=== PATIENT | male | born 1935 | race Caucasian/White ===

== ENCOUNTER 2017-08-30 06:11 | Day surgery (SDC) | payer MEDICARE ==
[~2017-08-30] VITALS: Ht 180.3 cm; Wt 81.8 kg
[2017-08-30] VITALS (8 sets, daily range): BP systolic 126–159; BP diastolic 76–102; PULSE 58–75; RESP 20; TEMP 97.5–97.6; O2SAT 94–97
[2017-08-30] MEDS ORDERED: ASPI81CH37 CHEW (06:47)
[2017-08-30] MEDS ORDERED: ZOCO5TAB PO (06:47)
[2017-08-30] MEDS ORDERED: OMEGCAP PO (06:47)
[2017-08-30] MEDS ORDERED: VITA100036 PO (06:47)
[2017-08-30] MEDS ORDERED: TERA5CAP3 PO (06:47)
[2017-08-30] MEDS ORDERED: FINA5TAB2 PO (06:47)
[2017-08-30] MEDS ORDERED: SODIUM CHLOR 0.9% 1000 ML INJ 1,000 ML IV SCH (07:00)
[2017-08-30 07:08] LABS: AUTOMATED NEUTROPHIL # 3.3 TH/MM3 (1.8-7.7); BASOPHIL % 0.7 % (0.0-2.0); EOSINOPHIL # 0.1 TH/MM3 (0-0.4); HEMATOCRIT 41.1 % (39.0-51.0); HEMO FLAGS DIFF FINAL; LYMPH % 18.5 % (9.0-44.0); LYMPHOCYTE # 0.9 TH/MM3 (1.0-4.8); MEAN CELL VOLUME 90.5 FL (80.0-100.0); MEAN CORPUSCULAR HEMOGLOBIN 31.4 PG (27.0-34.0); MEAN CORPUSCULAR HGB CONC 34.7 % (32.0-36.0); MONO % 11.8 % (0.0-8.0); PLATELET COUNT 117 TH/MM3 (150-450); RED BLOOD COUNT 4.54 MIL/MM3 (4.50-5.90); RED CELL DISTRIBUTION WIDTH 13.6 % (11.6-17.2)
[2017-08-30 07:22] LABS: APTT (PATIENT) 34.5 SEC (24.3-30.1); PROTHROMBIN TIME - PATIENT 11.2 SEC (9.8-11.6)
[2017-08-30] MEDS ORDERED: LIDOCAINE HCL 1% 20 ML VIAL ONE (07:43)
[2017-08-30] MEDS ORDERED: MIDAZOLAM HCL 5 MG/5 ML VIAL ONE (07:49)
--- NOTE | 2017-08-30 09:12 | PD.RAD ---
Post CT Procedure Prog Note Pre Procedure Diagnosis: (1) Lung mass Post Procedure Diagnosis: (1) Lung mass Procedure Date: Aug 30, 2017 Supervising Radiologist: Ramiro Gillis Anesthesia: Local, Conscious Sedation Plan of Activity Patient to Unit: ROPU Patient Condition: Good See PACS Report for procedural detail/treatment Biopsy Imaging Guidance: CT Biopsy Procedure: Lung Site: RLL Specimen: Core Biopsy Ramiro Gillis MD Aug 30, 2017 09:12
--- NOTE | 2017-08-30 09:23 | RADRPT ---
EXAM DATE/TIME: 08/30/2017 08:21 [facility] COMPARISON: No previous studies available for comparison. INDICATIONS : Right lung mass. SEDATION TIME: 40 minutes BIOPSY SITE: Right MEDICATION(S): 1.) 2 mg midazolam (Versed) IV 2.) 100 mcg fentanyl (Sublimaze) IV DEVICE(S): 1.) 18 gauge Temno core biopsy needle MEDICAL HISTORY : Hypertension. SURGICAL HISTORY : None. ENCOUNTER: Initial ACUITY: 1 day PAIN SCORE: 0/10 LOCATION: Right chest A total of three core specimen(s) were obtained and sent to the laboratory for pathologic evaluation. PROCEDURE: 1. CT guided lung biopsy. 2. Conscious sedation with continuous EKG and oximetry monitoring. 3. EKG and oximetry remained stable throughout the procedure. Prior to the procedure informed consent was obtained. Any appropriate prior imaging studies were rev iewed. Using automated exposure control and adjustment of the mA and/or kV according to patient size, radiation dose was kept as low as reasonably achievable to obtain optimal diagnostic quality images. DICOM format image data is available electronically for review and comparison. The site was prepped in a sterile fashion. Full sterile technique was used, including cap, mask, yumiko rile gloves and gown and a large sterile sheet. Hand hygiene and 2% chlorhexidine and/or betadine/al cohol prep was utilized per protocol for cutaneous antisepsis. The skin and subcutaneous tissues wer e infiltrated with local anesthetic solution. With CT guidance the previously identified target was localized. Biopsy was performed using the presc ribed needle as above. Adequate hemostasis was obtained with compression at the puncture site. Follow-up CT scan reveals no pneumothorax. Conscious sedation was performed with the prescribed dosages and duration as above in the presence of an independent trained radiology nurse to assist in the monitoring of the patient. EKG and oximetry remained stable throughout the procedure. The patient tolerated the procedure well and there were no complications. The patient was sent to Radiology Outpatient Unit in stable condition. CONCLUSION: Uncomplicated CT guided biopsy. Ramiro Gillis MD on August 30, 2017 at 9:21 Board Certified Radiologist. This report was verified electronically.
--- NOTE | 2017-08-30 10:00 | RADRPT ---
EXAM DATE/TIME: 08/30/2017 09:45 [facility] COMPARISON: No previous studies available for comparison. INDICATIONS : Post right lung biopsy. MEDICAL HISTORY : Hypertension. SURGICAL HISTORY : None. ENCOUNTER: Subsequent ACUITY: 1 day PAIN SCORE: 0/10 LOCATION: Right chest FINDINGS: Single portable expiration view the chest shows hypoinflation with mild bibasilar atelectasis. No pne umothorax following lung biopsy. No effusions. Heart is normal in size. Bony structures are unremarka ble. CONCLUSION: No pneumothorax following biopsy. Warren Turpin Jr., MD on August 30, 2017 at 9:57 Board Certified Radiologist. This report was verified electronically.
--- NOTE | 2017-08-30 11:45 | RADRPT ---
EXAM DATE/TIME: 08/30/2017 11:23 [facility] COMPARISON: CHEST EXPIRATION ONLY, August 30, 2017, 9:45. INDICATIONS : Post right lung biopsy. MEDICAL HISTORY : Hypertension. SURGICAL HISTORY : None. ENCOUNTER: Initial ACUITY: 1 day PAIN SCORE: 0/10 LOCATION: Right chest FINDINGS: A single frontal expiratory view of the chest was performed. Right lung remains well-expanded follow ing biopsy. There is persistent airspace disease in the left base. Heart is not surgically stable. CONCLUSION: 1. No evidence of pneumothorax status post right lung biopsy. 2. Persistent left basilar airspace disease. Ramiro Gillis MD on August 30, 2017 at 11:39 Board Certified Radiologist. This report was verified electronically.
== END 2017-08-30 13:06 | disposition home or self-care (01) ==
LOC: HRAD 06:11 → HRIP 06:19 → HRAD 13:06
PROVIDERS: ATTEND Family Medicine
DX: R91.1 Solitary pulmonary nodule (principal); I10 Essential (primary) hypertension; I48.91 Unspecified atrial fibrillation
CPT/HCPCS: 32405; 71010; 77012; 85025; 85610; 85730; 88305; J2250; J3010; J7030

== ENCOUNTER 2017-11-06 13:20 | Emergency (ER) | payer MEDICARE ==
[~2017-11-06 13:20] MED LIST: ASPI81CH6 CHEW; CHOL10008 PO; FINA5TAB2 PO; OMEGCAP PO; TERA5CAP3 PO; ZOCO5TAB PO
[2017-11-06] MEDS ORDERED: ZOFR4TAB PO (13:56)
[2017-11-06] MEDS ORDERED: FAMO1TAB30 PO (13:56)
[2017-11-06] MEDS ORDERED: OXYC1TAB36 PO (13:56)
[2017-11-06] MEDS ORDERED: MEGE1SUS10 PO (13:56)
[2017-11-06] MEDS ORDERED: SODIUM CHLOR 0.9% 1000 ML INJ 1,000 ML IV SCH (14:00)
[2017-11-06] MEDS ORDERED: ONDANSETRON HCL 4 MG/2 ML VIAL IVP ONE (14:00)
[2017-11-06] MEDS ORDERED: MORPHINE SULFATE 4 MG/ML INJ IV PUSH ONE ×2 (14:00→17:00)
[2017-11-06] MEDS ORDERED: SODIUM CHLORIDE 0.9% FLUSH 10 ML FLUSH IV FLUSH PRN (14:00)
[2017-11-06 14:02] VITALS: O2SAT 97
[2017-11-06 14:33] LABS: AUTOMATED NEUTROPHIL # 1.4 TH/MM3 (1.8-7.7); BASOPHIL % 0.8 % (0.0-2.0); EOSINOPHIL % 0.8 % (0.0-4.0); HEMATOCRIT 29.5 % (39.0-51.0); HEMOGLOBIN 9.9 GM/DL (13.0-17.0); LYMPH % 12.9 % (9.0-44.0); LYMPHOCYTE # 0.2 TH/MM3 (1.0-4.8); MEAN CELL VOLUME 90.6 FL (80.0-100.0); MEAN CORPUSCULAR HEMOGLOBIN 30.3 PG (27.0-34.0); MEAN CORPUSCULAR HGB CONC 33.4 % (32.0-36.0); MEAN PLATELET VOLUME 6.7 FL (7.0-11.0); MONO % 8.8 % (0.0-8.0); MONOCYTE # 0.1 TH/MM3 (0-0.9); NEUT % 76.7 % (16.0-70.0); PLATELET COUNT 215 TH/MM3 (150-450); RED BLOOD COUNT 3.25 MIL/MM3 (4.50-5.90); RED CELL DISTRIBUTION WIDTH 13.1 % (11.6-17.2); WHITE BLOOD COUNT 1.7 TH/MM3 (4.0-11.0)
[2017-11-06 14:41] LABS: CHLORIDE 98 MEQ/L (98-107); SODIUM (NA) 132 MEQ/L (136-145)
[2017-11-06 14:45] LABS: ALBUMIN 2.5 GM/DL (3.4-5.0); BICARBONATE 22.5 MEQ/L (21.0-32.0); BLOOD UREA NITROGEN 17 MG/DL (7-18); GLUCOSE,RANDOM 97 MG/DL (74-106); INTERNATIONAL NORMALIZED RATIO 1.3 RATIO; LIPASE 71 U/L (73-393); PROTHROMBIN TIME - PATIENT 12.9 SEC (9.8-11.6)
[2017-11-06 14:48] LABS: ALT (GPT) 136 U/L (12-78); AST (GOT) 161 U/L (15-37); GLOMERULAR FILTRATION RATE 72 ML/MIN (>89)
[2017-11-06 14:50] LABS: TOTAL BILIRUBIN ADULT 1.2 MG/DL (0.2-1.0); TOTAL PROTEIN 6.6 GM/DL (6.4-8.2)
[2017-11-06 14:51] LABS: ALKALINE PHOSPHATASE 128 U/L (45-117)
[2017-11-06 14:54] LABS: OVALOCYTES 1+ (NORMAL)
[2017-11-06] MEDS ORDERED: SODIUM CHLORID 0.9% 500 ML INJ 500 ML IV ONE (16:15)
[2017-11-06] MEDS ORDERED: IOHEXOL 350 MG/ML 10 ML VIAL (for RAD DIAG) IVCONTRAST ONE (16:20)
[2017-11-06 16:57] VITALS: BP 140/79; PULSE 78; RESP 16; TEMP 99.5; O2SAT 99
--- NOTE | 2017-11-06 16:58 | PD ---
HPI Chief Complaint: GI Complaint Time Seen by Provider: 13:54 Travel History International Travel<30 days: No Contact w/Intl Traveler<30days: No Traveled to known affect area: No History of Present Illness HPI Patient is a 82 year old male who comes in complaining of diarrhea and abdominal pain. He has history of pancreatic cancer, last treated with chemo on 10/31. He says for the past few days he has had lower abdominal pain and he has been feeling weak. He started having diarrhea yesterday and has had several episodes, often being unable to get himself to the bathroom. He denies seeing any blood in his stool. He denies any recent antibiotic use. He says he has pain to his lower abdomen. He has not been eating much, but denies nausea or vomiting. He denies fever at home. Nothing seems to make his symptoms better. 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) Cardiovascular Problems: Yes (a fib) High Cholesterol: Yes Hypertension: Yes Medical other: Yes (enlarge prostate,hyperlipidemia,parkinson's) Neurologic: Yes (cva) Immunizations Current: Yes Influenza Vaccination: Yes Past Surgical History Abdominal Surgery: Yes (colon sx,appendectomy, hernia repair) AICD: No Appendectomy: Yes Joint Replacement: No Pacemaker: No Other Surgery: Yes (lung and prostate biopsy) Social History Alcohol Use: No Tobacco Use: No Substance Use: No Allergies-Medications (Allergen,Severity, Reaction): Coded Allergies: No Known Allergies (Verified , 08/30/17) Reported Meds & Prescriptions Reported Meds & Active Scripts Active Reported Famotidine 10 Mg Tab 10 Mg PO BID Zofran (Ondansetron HCl) 4 Mg Tab 4 Mg PO Q6HR PRN Megestrol ES Liq 625 Mg/5 Ml Susp 10 Ml PO BID Oxycodone-Acetaminophen 10-325 mg Tab 1 Tab PO Q6H PRN Zocor (Simvastatin) 5 Mg Tab 5 Mg PO DAILY Review of Systems Except as stated in HPI: all other systems reviewed are Neg General / Constitutional: No: Fever, Chills HENT: No: Headaches, Lightheadedness Cardiovascular: No: Chest Pain or Discomfort Respiratory: No: Shortness of Breath Gastrointestinal: Positive: Diarrhea, Abdominal Pain Genitourinary: No: Dysuria Musculoskeletal: No: Myalgias, Edema Skin: No Rash, No Itching, No Change in Pigmentation Neurologic: Positive: Weakness Physical Exam Narrative GENERAL: Awake and alert, in no acute distress. SKIN: Focused skin assessment warm/dry. HEAD: Atraumatic. Normocephalic. EYES: Pupils equal and round. No scleral icterus. ENT: Mucous membranes pink and moist. NECK: Trachea midline. No JVD. CARDIOVASCULAR: Regular rate and rhythm. No murmur appreciated. RESPIRATORY: No accessory muscle use. Clear to auscultation. Breath sounds equal bilaterally. GASTROINTESTINAL: Abdomen soft, nondistended. Diffusely tender to palpation, worse in the lower abdomen. No rebound or guarding. MUSCULOSKELETAL: No obvious deformities. No clubbing. No cyanosis. No edema. NEUROLOGICAL: Awake and alert. No obvious cranial nerve deficits. Motor grossly within normal limits. Normal speech. PSYCHIATRIC: Appropriate mood and affect; insight and judgment normal. Data Data Last Documented VS Vital Signs Date Time Temp Pulse Resp B/P (MAP) Pulse Ox O2 Delivery O2 Flow Rate FiO2 11/06/17 16:57 99.5 78 16 140/79 (99) 99 11/06/17 14:02 Room Air Orders Orders Complete Blood Count With Diff (11/06/17 14:00) Comprehensive Metabolic Panel (11/06/17 14:00) Lipase (11/06/17 14:00) Lactic Acid (11/06/17 14:00) Prothrombin Time / Inr (Pt) (11/06/17 14:00) Act Partial Throm Time (Ptt) (11/06/17 14:00) Urinalysis - C+S If Indicated (11/06/17 14:00) Ct Abd/Pel W Iv Contrast(Rout) (11/06/17 14:00) Iv Access Insert/Monitor (11/06/17 14:00) Ecg Monitoring (11/06/17 14:00) Oximetry (11/06/17 14:00) Morphine Inj (Morphine Inj) (11/06/17 14:00) Ondansetron Inj (Zofran Inj) (11/06/17 14:00) Sodium Chlor 0.9% 1000 Ml Inj (Ns 1000 M (11/06/17 14:00) Sodium Chloride 0.9% Flush (Ns Flush) (11/06/17 14:00) C Diff Toxin Pcr (11/06/17 14:00) Sodium Chlorid 0.9% 500 Ml Inj (Ns 500 M (11/06/17 16:15) Iohexol 350 Inj (Omnipaque 350 Inj) (11/06/17 16:20) Morphine Inj (Morphine Inj) (11/06/17 17:00) Metronidazole 500 Mg Inj (Flagyl 500 Mg (11/06/17 17:45) Ciprofloxacin 400 Mg Premix (Cipro 400 M (11/06/17 17:45) Labs Laboratory Tests Test 11/06/17 14:23 11/06/17 16:54 White Blood Count 1.7 TH/MM3 Red Blood Count 3.25 MIL/MM3 Hemoglobin 9.9 GM/DL Hematocrit 29.5 % Mean Corpuscular Volume 90.6 FL Mean Corpuscular Hemoglobin 30.3 PG Mean Corpuscular Hemoglobin Concent 33.4 % Red Cell Distribution Width 13.1 % Platelet Count 215 TH/MM3 Mean Platelet Volume 6.7 FL Neutrophils (%) (Auto) 76.7 % Lymphocytes (%) (Auto) 12.9 % Monocytes (%) (Auto) 8.8 % Eosinophils (%) (Auto) 0.8 % Basophils (%) (Auto) 0.8 % Neutrophils # (Auto) 1.4 TH/MM3 Lymphocytes # (Auto) 0.2 TH/MM3 Monocytes # (Auto) 0.1 TH/MM3 Eosinophils # (Auto) 0.0 TH/MM3 Basophils # (Auto) 0.0 TH/MM3 CBC Comment AUTO DIFF Differential Comment AUTO DIFF CONFIRMED Ovalocytes 1+ Prothrombin Time 12.9 SEC Prothromb Time International Ratio 1.3 RATIO Activated Partial Thromboplast Time 34.1 SEC Blood Urea Nitrogen 17 MG/DL Creatinine 1.00 MG/DL Random Glucose 97 MG/DL Total Protein 6.6 GM/DL Albumin 2.5 GM/DL Calcium Level 9.0 MG/DL Alkaline Phosphatase 128 U/L Aspartate Amino Transf (AST/SGOT) 161 U/L Alanine Aminotransferase (ALT/SGPT) 136 U/L Total Bilirubin 1.2 MG/DL Sodium Level 132 MEQ/L Potassium Level 4.2 MEQ/L Chloride Level 98 MEQ/L Carbon Dioxide Level 22.5 MEQ/L Anion Gap 12 MEQ/L Estimat Glomerular Filtration Rate 72 ML/MIN Lactic Acid Level 1.7 mmol/L Lipase 71 U/L Urine Collection Type CATH Urine Color YELLOW Urine Turbidity CLEAR Urine pH 5.5 Urine Specific Harper 1.018 Urine Protein TRACE mg/dL Urine Glucose (UA) NEG mg/dL Urine Ketones 15 mg/dL Urine Occult Blood NEG Urine Nitrite NEG Urine Bilirubin NEG Urine Leukocyte Esterase NEG Urine WBC 0-2 /hpf Urine Amorphous Sediment FEW Urine Hyaline Casts 3-5 /lpf Urine Mucus FEW /lpf Microscopic Urinalysis Comment CATH-CULT NOT IND Urine Collection Time 16:54 [facility] Medical Decision Making Medical Screen Exam Complete: Yes Emergency Medical Condition: Yes Medical Record Reviewed: Yes Differential Diagnosis Colitis versus obstruction versus dehydration versus electrolyte abnormality Narrative Course Patient is a 82-year-old male who comes in complaining of diarrhea and abdominal pain. Exam shows lower abdominal tenderness. IV established, labs sent. Labs show a white blood cell count of 1.7 with a neutrophil count of 1400. Electrolytes are within normal limits. Patient given IV fluids. Given pain medicine. CT abdomen and pelvis shows evidence of colitis. Patient offered admission, but would prefer to go home. Given first dose of antibiotics here. Discharge with prescriptions for Cipro and Flagyl. Given strict return precautions. He has a follow-up with his doctor on Tuesday. He and his family are comfortable with this plan. They will return any time for any worsening symptoms. Last 24 hours Impressions Abdomen/Pelvis CT 11/06/17 1400 Signed Impressions: Service Date/Time: Tuesday, November 06, 2017 16:13 - CONCLUSION: 1. Multiple bilateral pulmonary nodules suspicious for metastatic disease. 2. Reported history of pancreatic carcinoma. There is mild haziness at the root of the mesentery adjacent to the pancreas and may correspond to this finding. 1.8 cm oval cystic area is seen in the body of the pancreas, nonspecific. 3. Mild circumferential wall thickening of the rectum and sigmoid colon suggesting possible colitis. 4. Enlarged prostate. Victor Manuel Magallanes MD Diagnosis Primary Impression: Colitis Patient Instructions: Colitis (ED), General Instructions Additional Instructions: Take all of your antibiotics. Drink plenty of fluids. Take pain medicine as needed. Follow-up with your doctor. Return to the ED at any time for any worsening symptoms. Scripts Metronidazole (Flagyl) 500 Mg Tab 500 MG PO TID for Infection for 7 Days, TAB 0 Refills Prov: Gabrielle Cortes MD 11/06/17 Ciprofloxacin (Cipro) 500 Mg Tab 500 MG PO BID for Infection for 7 Days, #14 TAB 0 Refills Prov: Gabrielle Cortes MD 11/06/17 Disposition: 01 DISCHARGE HOME Condition: Stable Gabrielle Cortes MD Nov 06, 2017 16:58
[2017-11-06 17:06] LABS: BLOOD, URINE NEG (NEG); GLUCOSE,URINE NEG (NEG); KETONE, URINE 15 mg/dL (NEG); NITRITE,URINE NEG (NEG); PH, URINE 5.5 (5.0-8.5); URINE LEUKOCYTE ESTERASE NEG (NEG)
[2017-11-06 17:11] LABS: BILIRUBIN, URINE NEG (NEG)
[2017-11-06 17:12] LABS: URINE COLOR YELLOW (YELLW/STRAW)
[2017-11-06 17:13] LABS: AMORPHOUS SEDIMENT, URINE FEW; MUCUS URINE FEW /lpf (OCC); WBC, URINE 0-2 /hpf (0-5)
--- NOTE | 2017-11-06 17:24 | RADRPT ---
EXAM DATE/TIME: 11/06/2017 16:13 [facility] COMPARISON: No previous studies available for comparison. INDICATIONS : Lower abdominal pain. Diarrhea since yesterday. IV CONTRAST: 95 cc Omnipaque 350 (iohexol) IV ORAL CONTRAST: No oral contrast ingested. RADIATION DOSE: 6.63 CTDIvol (mGy) MEDICAL HISTORY : Cerebrovascular disease. Carcinoma, pancreas. Metastatic, lung. SURGICAL HISTORY : Appendectomy. Colon surgery. Hernia repair. ENCOUNTER: Initial ACUITY: 2 days PAIN SCALE: 0/10 LOCATION: pelvis abdomen TECHNIQUE: Volumetric scanning of the abdomen and pelvis was performed. Using automated exposure control and ad justment of the mA and/or kV according to patient size, radiation dose was kept as low as reasonably achievable to obtain optimal diagnostic quality images. DICOM format image data is available electro nically for review and comparison. FINDINGS: LOWER LUNGS: Multiple bilateral pulmonary nodules are identified at the lung bases including a 2 cm nodular densit y in the posterior right lower lobe on image #80. 1.6 cm nodular density in the posterior left lower lobe on image #14. LIVER: Homogeneous density without lesion. There is no dilation of the biliary tree. No calcified gallston es. SPLEEN: Normal size without lesion. PANCREAS: Oval 1.8 cm cystic mass in the pancreatic body. There is mild hazy opacity at the root of the mesente ry. KIDNEYS: Normal in size and shape. There is no mass, stone or hydronephrosis. ADRENAL GLANDS: Within normal limits. VASCULAR: There is no aortic aneurysm. BOWEL/MESENTERY: Post surgical findings of the ascending colon. Mild nonspecific circumferential wall thickening of th e rectum and sigmoid colon. No evidence of bowel dilatation. No free air or free fluid. RETROPERITONEUM: There is no lymphadenopathy. BLADDER: No wall thickening or mass. REPRODUCTIVE: Prostate enlargement measuring 5.1 cm in transverse dimension. INGUINAL: Fat-containing left inguinal hernia. MUSCULOSKELETAL: Degenerative findings of the lumbar spine. CONCLUSION: 1. Multiple bilateral pulmonary nodules suspicious for metastatic disease. 2. Reported history of pancreatic carcinoma. There is mild haziness at the root of the mesentery cecelia cent to the pancreas and may correspond to this finding. 1.8 cm oval cystic area is seen in the body of the pancreas, nonspecific. 3. Mild circumferential wall thickening of the rectum and sigmoid colon suggesting possible colitis. 4. Enlarged prostate. Victor Manuel Magallanes MD on November 06, 2017 at 17:17 Board Certified Radiologist. This report was verified electronically.
[2017-11-06] MEDS ORDERED: metroNIDAZOLE 500 MG INJ 100 ML IV ONE (17:45)
[2017-11-06] MEDS ORDERED: CIPROFLOXACIN 400 MG PREMIX 200 ML IV ONE (17:45)
[2017-11-06] MEDS ORDERED: METR-1 PO (17:55)
[2017-11-06] MEDS ORDERED: CIPR-9 PO (17:55)
[2017-11-06 20:27] VITALS: BP 125/82; TEMP 98.4
== END 2017-11-06 20:30 | disposition home or self-care (01) ==
LOC: PHED 13:20
DX: K52.9 Noninfective gastroenteritis and colitis, unspecified (principal); I48.91 Unspecified atrial fibrillation; E78.00 Pure hypercholesterolemia, unspecified; I10 Essential (primary) hypertension
CPT/HCPCS: 74177; 80053; 81001; 83605; 83690; 85025; 85610; 85730; 96361; 96365; 96367; 96375; 96376; 99285; J0744; J2270; J2405; J7030; J7040; Q9967